=== PATIENT | male | born 1975 | race African-American/Black ===

== ENCOUNTER 2020-07-16 07:18 | Inpatient (IN) | payer OTHER ==
[~2020-07-16] VITALS: Ht 180.3 cm; Wt 86.2 kg
[2020-07-16] MEDS ORDERED: SODIUM CHLORIDE 0.9% 1000ML 1,000 ML IV STA ×2 (07:36)
[2020-07-16] MEDS ORDERED: CEFTRIAXONE SOD 1 GM VIAL IV SCH ×2 (07:45→09:30)
[2020-07-16 08:09] LABS: BASOPHILS % 0.2 % (0.0-1.0); HEMATOCRIT 41.3 % (38.2-49.6); HEMOGLOBIN 14.2 g/dL (14.0-18.0); LYMPHOCYTES # (AUTO) 0.7 (1.0-3.2); LYMPHOCYTES % 3.1 % (18.0-39.1); MEAN CORPUSCULAR HEMOGLOBIN 29.5 pg (28-32); MEAN CORPUSCULAR HGB CONC 34.4 g/dL (31-35); MEAN CORPUSCULAR VOLUME 85.7 fL (81-99); MONOCYTES # (AUTO) 1.3 (0.2-0.8); MONOCYTES % 6.1 % (4.4-11.3); NEUTROPHILS # (AUTO) 19.1 (2.1-6.9); NEUTROPHILS % 89.8 % (38.7-80.0); PLATELET COUNT 291 x10e3/uL (140-360); RED BLOOD COUNT 4.82 x10e6/uL (4.3-5.7); RED CELL DISTRIBUTION WIDTH 12.1 % (11.7-14.4)
[2020-07-16] MEDS ORDERED: CEFTRIAXONE SOD 1 GM/NS 50 ML 50 ML IV ONE (08:15)
[2020-07-16 08:16] LABS: CLARITY,URINE CLEAR (CLEAR); COLOR,URINE ORANGE (YELLOW)
[2020-07-16 08:17] LABS: LEUKOCYTE ESTERASE ,URINE SMALL (NEGATIVE); NITRITE,URINE NEGATIVE (NEGATIVE)
[2020-07-16 08:18] LABS: BILIRUBIN,URINE SMALL (NEGATIVE); KETONES,URINE 1+ (NEGATIVE); URINE UROBILINOGEN 1 mg/dL (0.2 - 1)
[2020-07-16 08:20] LABS: PROTEIN,URINE DIPSTICK 2+ (NEGATIVE)
[2020-07-16 08:28] LABS: INR 1.18; PROTHROMBIN TIME 15.6 seconds (11.9-14.5)
[2020-07-16 08:35] LABS: BACTERIA,URINE RARE /HPF; EPITHELIAL CELLS,URINE FEW /LPF; RBC,URINE >50 /HPF (0-5); WBC,URINE (MAN) >50 /HPF (0-5)
[2020-07-16 08:36] LABS: ALANINE AMINOTRANSFERASE 35 IU/L (0-55); ALBUMIN 3.7 g/dL (3.5-5.0); ALBUMIN/GLOBULIN RATIO 0.9 (0.8-2.0); ALKALINE PHOSPHATASE 71 IU/L (40-150); BLOOD UREA NITROGEN 11 mg/dL (7-26); BUN/CREATININE RATIO 8 (6-25); CALCIUM 9.3 mg/dL (8.4-10.2); CARBON DIOXIDE 28 mmol/L (22-29); CHLORIDE 95 mmol/L (98-107); CREATININE, SERUM 1.38 mg/dL (0.72-1.25); EST GLOMERULAR FILTRATION RATE > 60 ML/MIN (60-); GLUCOSE 138 mg/dL (74-118); SODIUM 131 mmol/L (136-145)
[2020-07-16 08:37] LABS: CREATINE KINASE 167 IU/L (30-200)
[2020-07-16 11:05] VITALS: BP 133/78
[2020-07-16] MEDS: SODIUM CHLORIDE 0.9% 1000ML 1,000 ML IV SCH ×3 (11:12→19:56)
[2020-07-16] MEDS: ONDANSETRON HCL INJ 2MG/ML 2ML 2 MG/ML VIAL IV PRN ×2 (11:12→20:16)
[2020-07-16 11:48] VITALS: BP 133/78
[2020-07-16] MEDS: ACETAMINOPHEN 325 MG TAB PO PRN ×2 (14:25→20:16)
[2020-07-16 15:59] VITALS: BP 126/74
[2020-07-16] MEDS ORDERED: METOPROLOL TARTRATE INJ 1 MG/ML VIAL IV PRN (18:30)
[2020-07-16] MEDS ORDERED: POLYETHYLENE GLYCOL 3350 17 GM PACK PO PRN (18:30)
[2020-07-16 20:00] VITALS: BP 131/90
[2020-07-16] MEDS: TEMAZEPAM 15 MG CAP PO PRN (21:29)
[2020-07-17] VITALS (9 sets, daily range): BP systolic 114–132; BP diastolic 67–86
[2020-07-17 05:48] LABS: BASOPHILS % 0.1 % (0.0-1.0); HEMATOCRIT 36.8 % (38.2-49.6); HEMOGLOBIN 13.2 g/dL (14.0-18.0); LYMPHOCYTES # (AUTO) 0.7 (1.0-3.2); LYMPHOCYTES % 3.9 % (18.0-39.1); MEAN CORPUSCULAR HEMOGLOBIN 30.4 pg (28-32); MEAN CORPUSCULAR HGB CONC 35.9 g/dL (31-35); MEAN CORPUSCULAR VOLUME 84.8 fL (81-99); MONOCYTES # (AUTO) 1.5 (0.2-0.8); MONOCYTES % 7.6 % (4.4-11.3); NEUTROPHILS # (AUTO) 16.8 (2.1-6.9); NEUTROPHILS % 87.9 % (38.7-80.0); PLATELET COUNT 224 x10e3/uL (140-360); RED BLOOD COUNT 4.34 x10e6/uL (4.3-5.7); RED CELL DISTRIBUTION WIDTH 12.3 % (11.7-14.4)
[2020-07-17 06:13] LABS: ANION GAP 12.7 mmol/L (8-16); BLOOD UREA NITROGEN 12 mg/dL (7-26); BUN/CREATININE RATIO 11 (6-25); CALCIUM 8.3 mg/dL (8.4-10.2); CARBON DIOXIDE 23 mmol/L (22-29); CHLORIDE 100 mmol/L (98-107); CREATININE, SERUM 1.11 mg/dL (0.72-1.25); EST GLOMERULAR FILTRATION RATE > 60 ML/MIN (60-); GLUCOSE 124 mg/dL (74-118); POTASSIUM 3.7 mmol/L (3.5-5.1); SODIUM 132 mmol/L (136-145)
[2020-07-17 07:27] LABS: CHOL/HDL RATIO 4.6 (3.9-4.7); MAGNESIUM 1.6 MG/DL (1.3-2.1); PHOSPHORUS 1.8 MG/DL (2.3-4.7)
[2020-07-17 07:44] LABS: THYROID STIMULATING HORMONE 0.214 uIU/mL (0.350-4.940)
[2020-07-17] MEDS: FAMOTIDINE 20 MG/2 ML VIAL IV SCH ×2 (08:02→16:22)
[2020-07-17] MEDS: ONDANSETRON HCL INJ 2MG/ML 2ML 2 MG/ML VIAL IV PRN (08:02)
[2020-07-17] MEDS: DOCUSATE SODIUM 100 MG CAP PO SCH ×2 (08:02→16:22)
[2020-07-17] MEDS: CEFTRIAXONE SOD 1 GM/NS 50 ML 50 ML IV SCH (08:02)
[2020-07-17] MEDS: ACETAMINOPHEN 325 MG TAB PO PRN ×2 (08:59→22:10)
[2020-07-17] MEDS: ACETAMINOPHEN/CODEINE 300MG - 30MG TAB PO PRN (16:22)
[2020-07-17] MEDS: TEMAZEPAM 15 MG CAP PO PRN (22:10)
[2020-07-18] VITALS (9 sets, daily range): BP systolic 116–139; BP diastolic 74–96
[2020-07-18] MEDS: SODIUM CHLORIDE 0.9% 1000ML 1,000 ML IV SCH ×2 (04:49→17:30)
[2020-07-18 06:23] LABS: BASOPHILS % 0.1 % (0.0-1.0); EOSINOPHILS # (AUTO) 0.2 (0.0-0.4); EOSINOPHILS % 1.1 % (0.0-6.0); HEMATOCRIT 39.5 % (38.2-49.6); HEMOGLOBIN 14.5 g/dL (14.0-18.0); LYMPHOCYTES # (AUTO) 1.3 (1.0-3.2); LYMPHOCYTES % 9.5 % (18.0-39.1); MEAN CORPUSCULAR HEMOGLOBIN 31.9 pg (28-32); MEAN CORPUSCULAR HGB CONC 36.7 g/dL (31-35); MEAN CORPUSCULAR VOLUME 86.8 fL (81-99); MONOCYTES # (AUTO) 1.8 (0.2-0.8); MONOCYTES % 13.5 % (4.4-11.3); NEUTROPHILS # (AUTO) 10.3 (2.1-6.9); NEUTROPHILS % 75.4 % (38.7-80.0); PLATELET COUNT 220 x10e3/uL (140-360); RED BLOOD COUNT 4.55 x10e6/uL (4.3-5.7); RED CELL DISTRIBUTION WIDTH 13.3 % (11.7-14.4)
[2020-07-18 06:46] LABS: ANION GAP 13.8 mmol/L (8-16); BLOOD UREA NITROGEN 12 mg/dL (7-26); BUN/CREATININE RATIO 12 (6-25); CALCIUM 8.7 mg/dL (8.4-10.2); CARBON DIOXIDE 23 mmol/L (22-29); CHLORIDE 99 mmol/L (98-107); CREATININE, SERUM 1.02 mg/dL (0.72-1.25); EST GLOMERULAR FILTRATION RATE > 60 ML/MIN (60-); GLUCOSE 128 mg/dL (74-118); POTASSIUM 3.8 mmol/L (3.5-5.1); SODIUM 132 mmol/L (136-145)
[2020-07-18] MEDS: CEFTRIAXONE SOD 1 GM/NS 50 ML 50 ML IV SCH (09:30)
[2020-07-18] MEDS: FAMOTIDINE 20 MG/2 ML VIAL IV SCH (09:30)
[2020-07-18] MEDS: DOCUSATE SODIUM 100 MG CAP PO SCH ×2 (09:30→17:00)
[2020-07-18] MEDS ORDERED: ONDANSETRON HCL 4 MG ORAL DISINTEGRATING TAB PO PRN (13:00)
[2020-07-18] MEDS: AMPICILLIN SOD 1 GM/NS 50ML 50 ML IV SCH ×2 (15:00→21:04)
[2020-07-18] MEDS: FAMOTIDINE 20 MG TAB PO SCH (15:00)
[2020-07-18] MEDS: ACETAMINOPHEN 325 MG TAB PO PRN (17:25)
[2020-07-18] MEDS: TEMAZEPAM 15 MG CAP PO PRN (22:54)
[2020-07-19] VITALS (10 sets, daily range): BP systolic 112–129; BP diastolic 78–84
[2020-07-19] MEDS: AMPICILLIN SOD 1 GM/NS 50ML 50 ML IV SCH ×3 (05:27→21:40)
[2020-07-19 06:04] LABS: BASOPHILS % 0.2 % (0.0-1.0); EOSINOPHILS # (AUTO) 0.3 (0.0-0.4); HEMATOCRIT 38.6 % (38.2-49.6); HEMOGLOBIN 13.7 g/dL (14.0-18.0); LYMPHOCYTES # (AUTO) 1.2 (1.0-3.2); LYMPHOCYTES % 9.4 % (18.0-39.1); MEAN CORPUSCULAR HGB CONC 35.5 g/dL (31-35); MEAN CORPUSCULAR VOLUME 84.5 fL (81-99); MONOCYTES # (AUTO) 1.6 (0.2-0.8); MONOCYTES % 13.2 % (4.4-11.3); NEUTROPHILS # (AUTO) 9.2 (2.1-6.9); NEUTROPHILS % 74.6 % (38.7-80.0); PLATELET COUNT 294 x10e3/uL (140-360); RED BLOOD COUNT 4.57 x10e6/uL (4.3-5.7); RED CELL DISTRIBUTION WIDTH 12.4 % (11.7-14.4)
[2020-07-19 06:28] LABS: ALANINE AMINOTRANSFERASE 58 IU/L (0-55); ALBUMIN 2.8 g/dL (3.5-5.0); ALBUMIN/GLOBULIN RATIO 0.7 (0.8-2.0); ALKALINE PHOSPHATASE 67 IU/L (40-150); ANION GAP 14.5 mmol/L (8-16); BLOOD UREA NITROGEN 9 mg/dL (7-26); BUN/CREATININE RATIO 9 (6-25); CALCIUM 8.8 mg/dL (8.4-10.2); CARBON DIOXIDE 24 mmol/L (22-29); CHLORIDE 99 mmol/L (98-107); CREATININE, SERUM 0.99 mg/dL (0.72-1.25); EST GLOMERULAR FILTRATION RATE > 60 ML/MIN (60-); GLUCOSE 96 mg/dL (74-118); POTASSIUM 3.5 mmol/L (3.5-5.1); SODIUM 134 mmol/L (136-145)
[2020-07-19] MEDS: FAMOTIDINE 20 MG TAB PO SCH ×2 (08:09→16:08)
[2020-07-19] MEDS: CEFTRIAXONE SOD 1 GM/NS 50 ML 50 ML IV SCH (08:09)
[2020-07-19] MEDS: OXYBUTYNIN CHLORIDE 5 MG TAB PO SCH ×3 (08:09→19:56)
[2020-07-19] MEDS: PHENAZOPYRIDINE HCL 100 MG TAB PO SCH ×3 (08:09→17:06)
[2020-07-19] MEDS: DOCUSATE SODIUM 100 MG CAP PO SCH ×2 (08:09→16:07)
[2020-07-19] MEDS ORDERED: TYLENOL # 31 EA PO (09:52)
[2020-07-19] MEDS ORDERED: PENCILLIN V PO250 MG PO (09:52)
[2020-07-19] MEDS ORDERED: DITROPAN PO (09:52)
[2020-07-19] MEDS: SODIUM CHLORIDE 0.9% 1000ML 1,000 ML IV SCH (13:30)
[2020-07-19] MEDS ORDERED: ONDANSETRON HCL INJ 2MG/ML 2ML 2 MG/ML VIAL ONE (19:18)
[2020-07-19] MEDS ORDERED: SEVOFLURANE INHAL SOLN 250 ML PEN BTL ONE (19:18)
[2020-07-19] MEDS ORDERED: LIDOCAINE HCL 2% LOCAL INJ 5 ML SDV VIAL INJ ONE (19:18)
[2020-07-19] MEDS ORDERED: DEXAMETHASONE SOD PHOS INJ 4 MG/ML VIAL ONE (19:18)
[2020-07-19] MEDS ORDERED: PROPOFOL IV EMULSION 10 MG/ML 20 ML VIAL ONE (19:18)
[2020-07-19] MEDS ORDERED: FENTANYL CITRATE/PF 100MCG/2 ML INJ ONE (19:31)
[2020-07-19] MEDS ORDERED: MIDAZOLAM HCL 2 MG/2 ML VIAL ONE (19:31)
[2020-07-20] VITALS (8 sets, daily range): BP systolic 112–131; BP diastolic 70–83
[2020-07-20] MEDS: AMPICILLIN SOD 1 GM/NS 50ML 50 ML IV SCH ×2 (05:30→13:21)
[2020-07-20 06:13] LABS: BASOPHILS % 0.1 % (0.0-1.0); EOSINOPHILS # (AUTO) 0.1 (0.0-0.4); EOSINOPHILS % 0.9 % (0.0-6.0); HEMOGLOBIN 13.3 g/dL (14.0-18.0); LYMPHOCYTES # (AUTO) 1.7 (1.0-3.2); LYMPHOCYTES % 10.7 % (18.0-39.1); MEAN CORPUSCULAR VOLUME 82.8 fL (81-99); MONOCYTES # (AUTO) 1.5 (0.2-0.8); NEUTROPHILS # (AUTO) 11.9 (2.1-6.9); NEUTROPHILS % 77.8 % (38.7-80.0); PLATELET COUNT 337 x10e3/uL (140-360); RED BLOOD COUNT 4.59 x10e6/uL (4.3-5.7); RED CELL DISTRIBUTION WIDTH 12.2 % (11.7-14.4)
[2020-07-20 06:36] LABS: ANION GAP 14.8 mmol/L (8-16); BLOOD UREA NITROGEN 11 mg/dL (7-26); BUN/CREATININE RATIO 11 (6-25); CALCIUM 8.9 mg/dL (8.4-10.2); CARBON DIOXIDE 24 mmol/L (22-29); CHLORIDE 99 mmol/L (98-107); EST GLOMERULAR FILTRATION RATE > 60 ML/MIN (60-); GLUCOSE 109 mg/dL (74-118); POTASSIUM 3.8 mmol/L (3.5-5.1); SODIUM 134 mmol/L (136-145)
[2020-07-20] MEDS: FAMOTIDINE 20 MG TAB PO SCH (08:17)
[2020-07-20] MEDS: DOCUSATE SODIUM 100 MG CAP PO SCH (08:17)
[2020-07-20] MEDS: OXYBUTYNIN CHLORIDE 5 MG TAB PO SCH (08:17)
[2020-07-20] MEDS: PHENAZOPYRIDINE HCL 100 MG TAB PO SCH ×2 (08:17→12:46)
[2020-07-20] MEDS: ACETAMINOPHEN/CODEINE 300MG - 30MG TAB PO PRN (10:54)
[2020-07-27] MEDS ORDERED: OXYBUTYNIN CHLOR5 M1 PO (10:26)
[2020-09-11] MEDS ORDERED: TYLENOL EXTRA500 MG PO (10:27)
== END 2020-07-20 17:12 | disposition home or self-care (01) | DRG 689 ==
LOC: ER 07:44 → ERHOLD 09:24 → MED/SURG2 10:50
PROVIDERS: ADMIT Internal Medicine; ATTEND Internal Medicine
PROC: 0TF7XZZ Fragmentation in Left Ureter, External Approach (ICD-10-PCS; principal; 2020-07-19 06:30)
DX: N10 Acute pyelonephritis (principal); J96.02 Acute respiratory failure with hypercapnia; E87.1 Hypo-osmolality and hyponatremia; N20.0 Calculus of kidney; Z87.442 Personal history of urinary calculi; D64.9 Anemia, unspecified; B95.2 Enterococcus as the cause of diseases classified elsewhere
CPT/HCPCS: 36415; 50590; 71045; 74176; 80048; 80053; 80061; 81001; 82550; 82553; 83036; 83605; 83690; 83735; 83970; 84100; 84443; 84484; 84550; 85025; 85610; 85730; 87040; 87086; 87186; 93005; 99284; J0290; J0696; J1100; J2001; J2250; J2405; J3010; J7030; U0002

== ENCOUNTER → 2020-08-01 | Day surgery (SDC) | payer OTHER ==
[~2020-08-01] MED LIST: AMPICILLIN SOD 1 GM/NS 50ML 50 ML IV ONE; DEXAMETHASONE SOD PHOS INJ 4 MG/ML VIAL ONE; DITROPAN PO; FENTANYL CITRATE/PF 100MCG/2 ML INJ ONE; GENTAMICIN 80MG/NS 100 ML 200 ML IV ONE; LIDOCAINE HCL 2% LOCAL INJ 5 ML SDV VIAL INJ ONE; MIDAZOLAM HCL 2 MG/2 ML VIAL ONE; ONDANSETRON HCL INJ 2MG/ML 2ML 2 MG/ML VIAL ONE; OXYBUTYNIN CHLOR5 M1 PO; PENCILLIN V PO250 MG PO; PROPOFOL IV EMULSION 10 MG/ML 20 ML VIAL ONE; SEVOFLURANE INHAL SOLN 250 ML PEN BTL ONE; TYLENOL # 31 EA PO; TYLENOL EXTRA500 MG PO
[2020-08-01 09:50] VITALS: BP 128/91
== END | disposition home or self-care (01) ==
LOC: OR 05:20
PROVIDERS: ATTEND Urology
DX: N20.0 Calculus of kidney (principal); R31.0 Gross hematuria; N39.0 Urinary tract infection, site not specified; N13.30 Unspecified hydronephrosis; I86.1 Scrotal varices; K42.9 Umbilical hernia without obstruction or gangrene; N20.1 Calculus of ureter; Z96.0 Presence of urogenital implants; Z01.812 Encounter for preprocedural laboratory examination; Z01.818 Encounter for other preprocedural examination; Z11.59 Encounter for screening for other viral diseases
CPT/HCPCS: 50590; 74018; J0290; J1100; J1580; J2001; J2405; J2704; U0002; J2250; J3010

== ENCOUNTER → 2020-08-10 | Day surgery (SDC) | payer OTHER ==
[2020-08-07 14:30] LABS: BASOPHILS % 0.3 % (0.0-1.0); EOSINOPHILS # (AUTO) 0.5 (0.0-0.4); EOSINOPHILS % 5.1 % (0.0-6.0); HEMATOCRIT 43.2 % (38.2-49.6); HEMOGLOBIN 14.6 g/dL (14.0-18.0); LYMPHOCYTES # (AUTO) 2.4 (1.0-3.2); LYMPHOCYTES % 26.4 % (18.0-39.1); MEAN CORPUSCULAR HGB CONC 33.8 g/dL (31-35); MEAN CORPUSCULAR VOLUME 85.9 fL (81-99); MONOCYTES # (AUTO) 0.6 (0.2-0.8); MONOCYTES % 6.5 % (4.4-11.3); NEUTROPHILS # (AUTO) 5.5 (2.1-6.9); NEUTROPHILS % 61.3 % (38.7-80.0); PLATELET COUNT 363 x10e3/uL (140-360); RED BLOOD COUNT 5.03 x10e6/uL (4.3-5.7); RED CELL DISTRIBUTION WIDTH 12.6 % (11.7-14.4)
[2020-08-07 14:54] LABS: ANION GAP 14.3 mmol/L (8-16); BLOOD UREA NITROGEN 16 mg/dL (7-26); BUN/CREATININE RATIO 14 (6-25); CALCIUM 9.6 mg/dL (8.4-10.2); CARBON DIOXIDE 28 mmol/L (22-29); CHLORIDE 100 mmol/L (98-107); CREATININE, SERUM 1.16 mg/dL (0.72-1.25); EST GLOMERULAR FILTRATION RATE > 60 ML/MIN (60-); GLUCOSE 91 mg/dL (74-118); POTASSIUM 4.3 mmol/L (3.5-5.1); SODIUM 138 mmol/L (136-145)
--- NOTE | 2020-08-07 15:01 | Diagnostic Imaging Report ---
Exam: KUB - 2 views Indication: Preoperative Comparison: KUB of 07/27/2020, CT abdomen and pelvis of 07/17/2020 Findings: Left internal nephroureteral stent in place. Right lower pole renal calculi measure up to 5 mm. Left lower pole renal calculi measure up to 4 mm. Scattered phleboliths in the pelvis. Nonobstructive bowel gas pattern. No free air. No acute osseous injury. Impression: Bilateral renal calculi measure up to 5 mm on the right and 4 mm on the left. Left internal nephroureteral stent in place. Signed by: Filomena Narayanan MD on 08/07/2020 2:57 PM
[~2020-08-10] MED LIST changes: +ACETAMINOPHEN/CODEINE 300MG - 30MG TAB ONE; +B&O 60MG R/S 60 MG SUPP PR ONE; -FENTANYL CITRATE/PF 100MCG/2 ML INJ ONE; +IOPAMIDOL 300MG/ML 50ML INFUS..BTL IV ONE; -TYLENOL EXTRA500 MG PO
[2020-08-10 09:45] VITALS: BP 142/93
--- NOTE | 2020-08-11 00:53 | Operative Report ---
DATE OF PROCEDURE: 08/10/2020 SURGEON: Adan Villafuerte MD PREOPERATIVE DIAGNOSES: 1. Right proximal ureterolithiasis. 2. Left ureterolithiasis. 3. Left nephrolithiasis. 4. Left indwelling ureteral stent. 5. Right-sided hydronephrosis due to obstructing stones. 6. Expectation of left renal colic. POSTOPERATIVE DIAGNOSES: 1. Right proximal ureterolithiasis. 2. Left ureterolithiasis. 3. Left nephrolithiasis. 4. Left indwelling ureteral stent. 5. Right-sided hydronephrosis due to obstructing stones. 6. Expectation of left renal colic. OPERATION PERFORMED: 1. Cystourethroscopy with right ureteral catheterization and retrograde ureteropyelography (separate procedure performed to evaluate for right renal colic). 2. Right ureteroscopy (separate procedure performed in attempts to reach the obstructing right ureterolithiasis). 3. Left cystourethroscopy with insertion of right indwelling ureteral stent (separate procedure performed to relieve the hydronephrosis). 4. Left cystoscopy with removal of left indwelling ureteral stent (separate procedure performed for the diagnosis of stent on the separate scope). 5. Left semi-rigid ureteroscopy with stone manipulation and extraction (separate procedure performed for the left ureterolithiasis). 6. Left flexible ureteropyeloscopy with extraction of numerous stones (separate procedure performed for the left nephrolithiasis done with flexible ureteroscope). 7. Radiological services for supervision and interpretation of ureteroscopy. 8. Interpretation of retrograde ureteropyelography. 9. Supervision of fluoroscopy, no radiologist present. 10. Cystourethroscopy with insertion of left indwelling ureteral stent (separate procedure performed to relieve the hydronephrosis). ANESTHESIA: General. COMPLICATIONS: None. CLINICAL SUMMARY: These are all staged procedures as part of multi-staged and multi-step process in managing the patient's extensive urolithiasis. The patient has undergone bilateral ESWL. He has a left indwelling stent as a result of ureteroscopy to remove 3 large obstructing left distal ureteral stones that required laser lithotripsy. The patient is brought for another step in getting him closer to being stent free and stone free. He is aware of the risks of bleeding, infection, injury to adjacent structures, need for additional procedures, and elected to proceed. OPERATIVE PROCEDURE IN DETAIL: Informed consent was verified. Jordan Aden was properly identified, taken to the operating room, placed on the cystoscopy table in supine position, and anesthesia was uneventfully begun. The patient was then carefully and gently repositioned in dorsal lithotomy position with all pressure points well padded. His genitalia were prepared and draped in usual sterile fashion. The cystoscope sheath with a visual obturator in place was atraumatically inserted in the patient's urethra, it was guided unremarkable distal urethra through the normal sphincteric region through the prostate bed, which was significant for early BPH. We entered the patient's bladder and drained it. Panendoscopy of the urinary bladder revealed no suspicious mucosal lesions, no tumors, no diverticula. Left stent was emerging from the left ureteral orifice. The right ureteral orifice was in an appropriate position. A 5-[place] open-ended ureteral catheter was used to cannulate the right ureter and retrograde ureteropyelography was performed. A guidewire was then placed into the right ureter and guided to the proximal portion of the ureter where there was a cluster of filling defects and that correspond to calcifications noted on field contractor films consistent with a Steinstrasse that is significant and obstructing. The initial guidewire we attempted to place was obstructed at the level of the stones and seemed to coil within the upper part of the ureter. A semi-rigid ureteroscope was then placed alongside the guidewire and guided into the patient's right distal ureter. We could not advance it safely beyond the very distal ureter due to the fact that the ureter was not dilated and not prepared for ureteroscopy. Secondary guidewire was placed and over this guidewire, we utilized a flexible ureteroscope. We brought it to the level where the guidewire was being coiled within the ureter and there was a small ureteral laceration at that point. We utilized the ureteroscope to negotiate a guidewire past this region and into the upper pole calyx and yet another guidewire was then able to be negotiated into the same position and over one of these guidewires, a flexible ureteroscope was attempted to be negotiated to the level of the stone, so that we can laser them; however, the ureter was not prepared at this time and we felt that it is not wen to force the issue and better to leave the stent and to allow the ureter to dilate and the small laceration caused by the coiling wire due to the stones impaction; however, it can also heal. With cystoscopic and fluoroscopic guidance, a right-sided indwelling ureteral stent was then placed to coil the patient's upper pole calyx as well as the patient's bladder. The retaining suture was cut short. The cystoscope was renegotiated into the patient's bladder and a guidewire was then guided into the left ureter and guided to the level of the patient's kidney. The stent was then grasped completely, removed and discarded. Semi-rigid ureteroscope was then placed alongside the guidewire and guided into the patient's distal left ureter. We identified several stones. These were extracted. Secondary guidewire was left in place and over this guidewire, a flexible ureteroscope was then brought up to the level of the patient's kidney. We should also note that we utilized a flexible ureteroscopy sheath in order to avoid ureteral trauma. Multiple passes were made with the ureteroscope in order to extract numerous small stones. Dharmesh's plaques were noted throughout the kidney. There was a fine sand that could not be extracted. It was irrigated to loosen it from the mucosa and should be passable. Interpretation of retrograde ureteropyelography contrast was instilled in retrograde fashion bilaterally. The left side exhibited dilated collecting system and several small filling defects that corresponded to calcifications noted on field contractor films and to the stones we actually extracted. The right hand side exhibited hydronephrosis starting at the Steinstrasse of numerous small filling defects consistent with proximal right ureteral stone. There was extravasation that was noted from a small laceration in the ureter from the upper ureter due to the coiling of the guidewire due to the stone impaction. This happened despite using a Sensor wire with a Nitinol tip. The stents were in good position bilaterally, coiled in their respective kidney as well as the patient's bladder. The patient's bladder was drained and cystoscope was withdrawn. A belladonna and opium suppository were placed, and the patient was uneventfully reversed from anesthesia and taken to recovery room in stable condition. There were no complications to the procedure. He tolerated the procedure well. Plans will be to have the patient return the operating room in several weeks to remove his stents, perform bilateral ureteroscopies, and hopefully render the patient stent free and stone free. Adan MD YUNIER Villafuerte/MURTAZA /[id number]
== END | disposition home or self-care (01) ==
LOC: OR 05:34
PROVIDERS: ATTEND Urology
DX: N13.2 Hydronephrosis with renal and ureteral calculous obstruction (principal); Z46.6 Encounter for fitting and adjustment of urinary device; N40.0 Benign prostatic hyperplasia without lower urinary tract symptoms; S37.13XA Laceration of ureter, initial encounter; N28.89 Other specified disorders of kidney and ureter; X58.XXXA Exposure to other specified factors, initial encounter; Z01.812 Encounter for preprocedural laboratory examination; Z01.818 Encounter for other preprocedural examination; Z11.59 Encounter for screening for other viral diseases
CPT/HCPCS: 36415; 52332; 52352; 74018; 74420; 80048; 83970; 84550; 85025; 87086; 88300; C1758; C1766; C1769; C2617; J0290; J1100; J1580; J2001; J2250; J2405; J2704; Q9967; U0002

== ENCOUNTER → 2020-09-14 | Day surgery (SDC) | payer OTHER ==
[2020-09-11 11:22] LABS: BASOPHILS % 0.2 % (0.0-1.0); EOSINOPHILS # (AUTO) 0.6 (0.0-0.4); EOSINOPHILS % 7.2 % (0.0-6.0); HEMATOCRIT 42.4 % (38.2-49.6); HEMOGLOBIN 14.2 g/dL (14.0-18.0); LYMPHOCYTES # (AUTO) 1.9 (1.0-3.2); MEAN CORPUSCULAR HEMOGLOBIN 29.3 pg (28-32); MEAN CORPUSCULAR HGB CONC 33.5 g/dL (31-35); MEAN CORPUSCULAR VOLUME 87.4 fL (81-99); MONOCYTES # (AUTO) 0.6 (0.2-0.8); MONOCYTES % 7.2 % (4.4-11.3); NEUTROPHILS % 62.2 % (38.7-80.0); PLATELET COUNT 307 x10e3/uL (140-360); RED BLOOD COUNT 4.85 x10e6/uL (4.3-5.7); RED CELL DISTRIBUTION WIDTH 12.9 % (11.7-14.4)
[2020-09-11 11:42] LABS: ANION GAP 14.2 mmol/L (8-16); BLOOD UREA NITROGEN 11 mg/dL (7-26); BUN/CREATININE RATIO 10 (6-25); CALCIUM 8.8 mg/dL (8.4-10.2); CARBON DIOXIDE 29 mmol/L (22-29); CHLORIDE 100 mmol/L (98-107); CREATININE, SERUM 1.11 mg/dL (0.72-1.25); EST GLOMERULAR FILTRATION RATE > 60 ML/MIN (60-); GLUCOSE 124 mg/dL (74-118); POTASSIUM 4.2 mmol/L (3.5-5.1); SODIUM 139 mmol/L (136-145)
[~2020-09-14] MED LIST changes: -ACETAMINOPHEN/CODEINE 300MG - 30MG TAB ONE; +AMPICILLIN SOD 1 GM/NS 50ML 100 ML IV ONE; -AMPICILLIN SOD 1 GM/NS 50ML 50 ML IV ONE; +FENTANYL CITRATE/PF 100MCG/2 ML INJ ONE; +LIDOCAINE HCL 2% JELLY 5 ML TUBE ONE; -LIDOCAINE HCL 2% LOCAL INJ 5 ML SDV VIAL INJ ONE; +ROCURONIUM BROMIDE 10 MG/ML 5ML VIAL IV ONE; +SUCCINYLCHOLINE CHLORIDE 20 MG/ML 10ML VIAL ONE; +TYLENOL EXTRA500 MG PO
[2020-09-14 12:45] VITALS: BP 137/95
== END | disposition home or self-care (01) ==
LOC: OR 08:54
PROVIDERS: ATTEND Urology
DX: N20.0 Calculus of kidney (principal); N20.1 Calculus of ureter; Z46.6 Encounter for fitting and adjustment of urinary device; N40.0 Benign prostatic hyperplasia without lower urinary tract symptoms; Z01.810 Encounter for preprocedural cardiovascular examination; Z01.812 Encounter for preprocedural laboratory examination; Z20.828 Contact with and (suspected) exposure to other viral communicable diseases
CPT/HCPCS: 36415; 52352; 52353; 74018; 74420; 80048; 85025; 88300; 93005; C1766; C1769; J0290; J0330; J1100; J1580; J2001; J2250; J2405; J2704; J3010; Q9967; U0002

== ENCOUNTER → 2020-12-21 | Day surgery (SDC) | payer OTHER ==
[~2020-12-21] MED LIST changes: -AMPICILLIN SOD 1 GM/NS 50ML 100 ML IV ONE; +BUPIVACAINE 0.25% 30ML SDV ONE; +CEFAZOLIN SOD 1 GM/NS 50ML 50 ML IV ONE; +EPHEDRINE SULFATE INJ 50 MG/ML VIAL ONE; -GENTAMICIN 80MG/NS 100 ML 200 ML IV ONE; -LIDOCAINE HCL 2% JELLY 5 ML TUBE ONE; +LIDOCAINE HCL 2% LOCAL INJ 5 ML SDV VIAL INJ ONE; +NEOSTIGMINE 1 MG/ML 10ML VIAL ONE; -ROCURONIUM BROMIDE 10 MG/ML 5ML VIAL IV ONE; -SUCCINYLCHOLINE CHLORIDE 20 MG/ML 10ML VIAL ONE
[2020-12-21 10:10] VITALS: BP 126/64
== END | disposition home or self-care (01) ==
LOC: OR 05:29
PROVIDERS: ATTEND Urology
DX: N47.1 Phimosis (principal); Z87.442 Personal history of urinary calculi; N28.9 Disorder of kidney and ureter, unspecified; N40.0 Benign prostatic hyperplasia without lower urinary tract symptoms; N13.8 Other obstructive and reflux uropathy; N32.89 Other specified disorders of bladder; R80.9 Proteinuria, unspecified; N13.30 Unspecified hydronephrosis; I86.1 Scrotal varices; K42.9 Umbilical hernia without obstruction or gangrene; E66.9 Obesity, unspecified; Z01.810 Encounter for preprocedural cardiovascular examination; Z01.812 Encounter for preprocedural laboratory examination; Z20.822 Contact with and (suspected) exposure to COVID-19; Z84.1 Family history of disorders of kidney and ureter
CPT/HCPCS: 52351; 54161; 74420; 88304; 93005; C1758; J0690; J1100; J2001; J2250; J2405; J2704; J2710; J3010; Q9967; U0002